=== PATIENT | male | born 1995 | race Two or more races ===

== ENCOUNTER → 2017-06-03 | Emergency (ER) | payer OTHER | END | disposition left against medical advice (07) | LOC: ER 12:35 | DX: T16.9XXA Foreign body in ear, unspecified ear, initial encounter (principal); Z53.21 Procedure and treatment not carried out due to patient leaving prior to being seen by health care provider; X58.XXXA Exposure to other specified factors, initial encounter; Y93.89 Activity, other specified; Y99.8 Other external cause status; Y92.89 Other specified places as the place of occurrence of the external cause ==

== ENCOUNTER 2021-08-17 09:09 | Emergency (ER) | payer MEDICAID, OTHER ==
[~2021-08-17] VITALS: Ht 175.3 cm; Wt 88.5 kg
[2021-08-17 09:52] VITALS: BP 146/105
[2021-08-17] MEDS ORDERED: AZIT250T8 PO ×2 (10:47→10:49)
[2021-08-17] MEDS ORDERED: METH4PAK PO ×2 (10:47→10:49)
== END 2021-08-17 11:12 | disposition home or self-care (01) ==
LOC: ER 09:09
DX: U07.1 COVID-19 (principal); M79.10 Myalgia, unspecified site
CPT/HCPCS: 36415; 87426